=== PATIENT | female | born 1960 | race African-American/Black ===

== ENCOUNTER 2024-04-27 12:21 | Inpatient (IN) | payer MEDICAID, OTHER ==
[~2024-04-27] VITALS: Ht 172.7 cm; Wt 80.7 kg
[2024-04-27] MEDS: SODIUM CHLORIDE 0.9% 1,000 ML IV ONE (13:06)
[2024-04-27] MEDS: ONDANSETRON HCL 4MG/2ML INJ IV STA (13:10)
[2024-04-27] MEDS: MORPHINE SULFATE 4 MG/ML INJ (FOR IV/IM USE) IV STA (14:01)
[2024-04-27 15:12] LABS: BASOPHILS % 0.4 % (0.0-2.0); DIFFERENTIAL COMMENT 0; EOSINOPHILS % 0.7 % (0.0-5.0); HEMATOCRIT. 36.5 % (36.0-48.0); HEMOGLOBIN. 11.2 g/dL (12.0-16.0); LYMPHOCYTES % 14.8 % (20.0-50.0); MEAN CORPUSCULAR HEMOGLOBIN 22.9 pg (28.0-32.0); MEAN CORPUSCULAR HGB CONC 30.7 g/dL (31.0-37.0); MEAN CORPUSCULAR VOLUME 74.4 fL (81.0-99.0); MEAN PLATELET VOLUME 8.2 fl (7.4-10.4); MONOCYTES % 6.5 % (2.0-8.0); NEUTROPHILS % 77.6 % (40.0-76.0); PLATELET 402 x1000/uL (130-400); RED BLOOD CELL COUNT 4.91 mill/uL (4.2-5.4); RED CELL DISTRIBUTION WIDTH 16.2 % (11.6-14.6); WHITE BLOOD COUNT 13.3 x1000/uL (4.5-11.0)
[2024-04-27 15:16] LABS: CHLORIDE 105 mEq/L (98-107); POTASSIUM 4.7 mEq/L (3.5-5.1); SODIUM 136 mEq/L (136-145)
[2024-04-27 15:17] LABS: CALCIUM 8.6 mg/dL (8.7-10.4); CARBON DIOXIDE 16 mEq/L (21-32)
[2024-04-27 15:21] LABS: INR 1.2; PROTHROMBIN TIME 13.7 sec (9.6-11.0)
[2024-04-27 15:22] LABS: CREATININE 1.1 mg/dL (0.6-1.0); GLUCOSE 88 mg/dL (70-105); UREA NITROGEN BLOOD 22 mg/dL (9-23)
[2024-04-27 15:24] LABS: LACTIC ACID 2.2 mmol/L (0.4-2.0)
[2024-04-27 19:30] LABS: CLARITY URINE CLEAR (CLEAR); COLOR URINE YELLOW (YELLOW); GLUCOSE URINE 1+ (NEGATIVE); KETONES URINE 1+ (NEGATIVE); LEUKOCYTE ESTERASE URINE TRACE (NEGATIVE); NITRITE URINE NEGATIVE (NEGATIVE); OCCULT BLOOD URINE NEGATIVE (NEGATIVE); PROTEIN URINE 1+ (NEGATIVE); SPECIFIC GRAVITY URINE 1.028 (1.005-1.030)
[2024-04-27 19:51] LABS: COARSE GRANULAR CASTS URINE 0-5 /lpf
[2024-04-27 19:52] LABS: RBC URINE NONE SEEN /hpf (0-2); WBC URINE 0-2 /hpf (0-2)
[2024-04-27 19:53] LABS: BACTERIA URINE TRACE; SQUAMOUS EPITHELIAL CELL URINE 1+ /lpf (RARE/1+)
[2024-04-27] MEDS ORDERED: GUAIFENESIN 200MG/10ML SUGAR FREE UDC PO PRN (20:45)
[2024-04-27] MEDS ORDERED: ACETAMINOPHEN 650MG/20.3ML UDC GT PRN (20:45)
[2024-04-27] MEDS ORDERED: DOCUSATE SODIUM 100MG CAPSULE PO PRN (20:45)
[2024-04-27] MEDS ORDERED: IPRATROPIUM/ALBUTEROL 0.5-3(2.5)MG/3ML NEB HHN PRN (20:45)
[2024-04-27] MEDS ORDERED: CLONIDINE 0.1MG TABLET PO PRN (20:45)
[2024-04-27] MEDS ORDERED: ACETAMINOPHEN 325MG TABLET PO PRN (20:45)
[2024-04-27] MEDS ORDERED: PIPERACILLIN/TAZO 3.375G/50ML 50 ML IV SCH (21:00)
[2024-04-27] MEDS: VANCOMYCIN 1,750 MG in SODIUM CHLORIDE 0.9% 500 ML IV NR (21:50)
[2024-04-27] MEDS ORDERED: IOHEXOL-300 100 ML BOTTLE ONE (21:50)
[2024-04-28] VITALS: BP 114/51; PULSE 85; RESP 16; TEMP 36.55848; O2SAT 99
[2024-04-28 00:25] LABS: IRON 30 ug/dL (50-170)
[2024-04-28 00:28] LABS: TOTAL IRON BINDING CAPACITY 419 ug/dl (250-425)
[2024-04-28 00:45] LABS: FOLIC ACID (FOLATE) SERUM 11.48 ng/mL (>5.38)
[2024-04-28 00:46] LABS: VITAMIN B12 SERUM 1072 pg/mL (211-911)
[2024-04-28 02:37] VITALS: BP 126/68; PULSE 65; RESP 18; TEMP 36.83628; O2SAT 100
[2024-04-28] MEDS: ONDANSETRON HCL 4MG/2ML INJ IV PRN (03:10)
[2024-04-28] MEDS: DEXT 5%/0.45% NACL 1000ML 1,000 ML IV SCH (03:11)
[2024-04-28] MEDS: PIPERACILLIN/TAZO 3.375G/50ML 50 ML IV SCH (03:11)
[2024-04-28 03:44] VITALS: BP 135/78; PULSE 89; RESP 18; TEMP 36.6404
[2024-04-28] MEDS ORDERED: AMLO5TAB5 MT (05:55)
[2024-04-28] MEDS ORDERED: EMPA10TA MT (05:55)
[2024-04-28 06:59] LABS: BASOPHILS % 0.8 % (0.0-2.0); DIFFERENTIAL COMMENT 0; EOSINOPHILS % 1.3 % (0.0-5.0); HEMATOCRIT. 35.5 % (36.0-48.0); LYMPHOCYTES % 15.1 % (20.0-50.0); MEAN CORPUSCULAR HEMOGLOBIN 23.1 pg (28.0-32.0); MEAN CORPUSCULAR HGB CONC 30.9 g/dL (31.0-37.0); MEAN CORPUSCULAR VOLUME 74.8 fL (81.0-99.0); MEAN PLATELET VOLUME 8.3 fl (7.4-10.4); MONOCYTES % 9.4 % (2.0-8.0); NEUTROPHILS % 73.4 % (40.0-76.0); PLATELET 325 x1000/uL (130-400); RED BLOOD CELL COUNT 4.74 mill/uL (4.2-5.4); WHITE BLOOD COUNT 9.5 x1000/uL (4.5-11.0)
[2024-04-28 07:13] LABS: CARBON DIOXIDE 21 mEq/L (21-32); CHLORIDE 105 mEq/L (98-107); POTASSIUM 4.5 mEq/L (3.5-5.1); SODIUM 134 mEq/L (136-145)
[2024-04-28 07:14] LABS: CALCIUM 8.7 mg/dL (8.7-10.4)
[2024-04-28 07:19] LABS: CREATININE 1.2 mg/dL (0.6-1.0); GLUCOSE 159 mg/dL (70-105); TRIGLYCERIDE 104 mg/dL (0-150); UREA NITROGEN BLOOD 19 mg/dL (9-23)
[2024-04-28 07:20] LABS: CHOLESTEROL 72 mg/dL (<200); LDL CHOLESTEROL 35 mg/dL (5-100)
[2024-04-28 07:21] LABS: HDL CHOLESTEROL < 20 mg/dL (>65)
[2024-04-28 08:00] VITALS: BP 108/69; PULSE 94; RESP 20; TEMP 36.16956; O2SAT 100
[2024-04-28] MEDS: ENOXAPARIN 40MG/0.4ML SYR SUBCUT SCH (09:47)
[2024-04-28 09:50] LABS: *AMPHETAMINES SCREEN URINE NEGATIVE (NEGATIVE); *BARBITURATES SCREEN URINE NEGATIVE (NEGATIVE); *BENZODIAZEPINES SCREEN URINE NEGATIVE (NEGATIVE); *COCAINE SCREEN URINE NEGATIVE (NEGATIVE); METHADONE URINE SCREEN NEGATIVE (NEGATIVE)
[2024-04-28 09:51] LABS: CANNABINOID URINE SCREEN NEGATIVE (NEGATIVE); ECSTASY MDMA SCREEN URINE NEGATIVE (NEGATIVE); OPIATES URINE SCREEN PRESUMPTIVE POSITIVE (NEGATIVE); PHENCYCLIDINE URINE SCREEN NEGATIVE (NEGATIVE)
[2024-04-28 12:00] VITALS: BP 121/77; PULSE 92; RESP 20; TEMP 36.33624; O2SAT 100
[2024-04-28] MEDS ORDERED: MORPHINE SULFATE 2 MG/ML INJ (NOT FOR IM USE) IV PRN (15:45)
[2024-04-28] MEDS ORDERED: NALOXONE HCL 0.4MG/ML VIAL IV PRN (15:45)
[2024-04-28 16:00] VITALS: BP 108/69; PULSE 75; RESP 20; TEMP 36.16956; O2SAT 100
[2024-04-28] MEDS: OXYCODONE HCL 5MG TABLET PO PRN (16:56)
[2024-04-28 18:21] LABS: ALANINE AMINOTRANSFERASE 30 IU/L (10-49); ALBUMIN 3.5 g/dL (3.2-4.8); ASPARTATE AMINOTRANSFERASE 91 IU/L (<34); BILIRUBIN DIRECT 0.5 mg/dL (<=3.0); BILIRUBIN TOTAL 0.9 mg/dL (0.1-1.0); PROTEIN TOTAL 6.4 g/dL (6.0-8.3)
[2024-04-28] MEDS: FAMOTIDINE 20MG TABLET PO SCH (20:57)
[2024-04-28] MEDS: VANCOMYCIN 1.25GM PMX (XELLIA) 250 ML IV SCH (20:58)
[2024-04-28] MEDS: DOCUSATE SODIUM 250MG CAPSULE PO SCH (20:59)
[2024-04-29 08:00] VITALS: BP 100/68; PULSE 72; RESP 18; TEMP 35.78064; TEMP 36.114; O2SAT 98
[2024-04-29 08:35] LABS: POTASSIUM 4.4 mEq/L (3.5-5.1)
[2024-04-29 08:36] LABS: CALCIUM 8.6 mg/dL (8.7-10.4)
[2024-04-29 08:41] LABS: CREATININE 1.3 mg/dL (0.6-1.0)
[2024-04-29 09:38] LABS: HEMATOCRIT 36.6 % (36.0-48.0); HEMOGLOBIN 11.1 g/dL (12.0-16.0); MEAN CORPUSCULAR HEMOGLOBIN 23.2 pg (28.0-32.0); MEAN CORPUSCULAR HGB CONC 30.3 g/dL (31.0-37.0); MEAN CORPUSCULAR VOLUME 76.7 fL (81.0-99.0); PLATELET 314 x1000/uL (130-400); RED BLOOD CELL COUNT 4.78 mill/uL (4.2-5.4); RED CELL DISTRIBUTION WIDTH 16.3 % (11.6-14.6); WHITE BLOOD COUNT 10.7 x1000/uL (4.5-11.0)
[2024-04-29 10:21] VITALS: BP 100/68; PULSE 72; RESP 18; TEMP 35.78064; O2SAT 98
[2024-04-29 12:00] VITALS: BP 123/78; PULSE 91; RESP 20; TEMP 36.00288; O2SAT 100
[2024-04-29] MEDS: PROCHLORPERAZINE 10MG/2ML VIAL IV PRN (15:20)
[2024-04-29 16:00] VITALS: BP 131/67; PULSE 91; RESP 20; TEMP 36.28068; O2SAT 97
[2024-04-29 20:00] VITALS: BP 113/78; PULSE 97; RESP 18; TEMP 36.61404; O2SAT 100
[2024-04-29] MEDS ORDERED: ONDANSETRON HCL 4MG/2ML INJ IV PRN (23:45)
[2024-04-30] VITALS (7 sets, daily range): BP systolic 111–126; BP diastolic 68–79; PULSE 81–108; RESP 17–19; TEMP 36.22512–36.9474; O2SAT 97–100
[2024-04-30 08:33] LABS: HEMATOCRIT 38.6 % (36.0-48.0); HEMOGLOBIN 11.8 g/dL (12.0-16.0); MEAN CORPUSCULAR HEMOGLOBIN 23.3 pg (28.0-32.0); MEAN CORPUSCULAR HGB CONC 30.7 g/dL (31.0-37.0); MEAN CORPUSCULAR VOLUME 76.1 fL (81.0-99.0); PLATELET 342 x1000/uL (130-400); RED BLOOD CELL COUNT 5.07 mill/uL (4.2-5.4); RED CELL DISTRIBUTION WIDTH 16.4 % (11.6-14.6); WHITE BLOOD COUNT 10.3 x1000/uL (4.5-11.0)
[2024-04-30 08:51] LABS: CALCIUM 9.2 mg/dL (8.7-10.4); POTASSIUM 4.4 mEq/L (3.5-5.1)
[2024-04-30 08:56] LABS: CREATININE 1.6 mg/dL (0.6-1.0)
[2024-04-30] MEDS ORDERED: SODIUM CHLORIDE 0.9% 1,000 ML IV SCH (15:15)
[2024-05-01] VITALS (7 sets, daily range): BP systolic 112–132; BP diastolic 60–79; PULSE 78–113; RESP 17–19; TEMP 36.3918–36.9474; O2SAT 97–100
[2024-05-01 07:31] LABS: HEMATOCRIT 39.5 % (36.0-48.0); HEMOGLOBIN 11.9 g/dL (12.0-16.0); MEAN CORPUSCULAR HEMOGLOBIN 23.4 pg (28.0-32.0); MEAN CORPUSCULAR HGB CONC 30.1 g/dL (31.0-37.0); MEAN CORPUSCULAR VOLUME 77.9 fL (81.0-99.0); PLATELET 318 x1000/uL (130-400); RED BLOOD CELL COUNT 5.07 mill/uL (4.2-5.4); RED CELL DISTRIBUTION WIDTH 16.6 % (11.6-14.6); WHITE BLOOD COUNT 11.6 x1000/uL (4.5-11.0)
[2024-05-01 07:36] LABS: CALCIUM 8.7 mg/dL (8.7-10.4); CARBON DIOXIDE 17 mEq/L (21-32); CHLORIDE 106 mEq/L (98-107); POTASSIUM 4.9 mEq/L (3.5-5.1); SODIUM 136 mEq/L (136-145)
[2024-05-01 07:41] LABS: CREATININE 1.5 mg/dL (0.6-1.0); GLUCOSE 100 mg/dL (70-105)
[2024-05-01 07:42] LABS: UREA NITROGEN BLOOD 21 mg/dL (9-23)
[2024-05-01 07:44] LABS: PHOSPHORUS 4.2 mg/dL (2.5-4.9)
[2024-05-01] MEDS ORDERED: PROC10TA65 PO (12:00)
== END 2024-05-01 20:41 | disposition home health service (06) | DRG 720 ==
LOC: ER 12:21 → EDBEDREQ 13:01 → EDBEDREQSVC 20:25 → EDBEDREQTM 20:25 → 5WST 21:09 → 7EST 04-28 02:56
PROVIDERS: ADMIT Preventive Medicine Clinical Informatics; ATTEND Preventive Medicine Clinical Informatics
DX: A41.9 Sepsis, unspecified organism (principal); N17.0 Acute kidney failure with tubular necrosis; C16.9 Malignant neoplasm of stomach, unspecified; C78.7 Secondary malignant neoplasm of liver and intrahepatic bile duct; E87.1 Hypo-osmolality and hyponatremia; C78.00 Secondary malignant neoplasm of unspecified lung; R62.7 Adult failure to thrive; E11.22 Type 2 diabetes mellitus with diabetic chronic kidney disease; D50.9 Iron deficiency anemia, unspecified; E86.0 Dehydration; N39.0 Urinary tract infection, site not specified; R65.20 Severe sepsis without septic shock; N18.9 Chronic kidney disease, unspecified; I12.9 Hypertensive chronic kidney disease with stage 1 through stage 4 chronic kidney disease, or unspecified chronic kidney disease; E86.9 Volume depletion, unspecified; Z68.27 Body mass index [BMI] 27.0-27.9, adult; Z85.05 Personal history of malignant neoplasm of liver; Z85.028 Personal history of other malignant neoplasm of stomach; Z79.01 Long term (current) use of anticoagulants
CPT/HCPCS: 36415; 71260; 74177; 76705; 80048; 80061; 80076; 80202; 80305; 81003; 82378; 82607; 82746; 83540; 83550; 83605; 83735; 84100; 85025; 85027; 93005; 97162; 97166; 97530; 99291; J0780; J1650; J2270; J2405; J2543; J3370; J7030; J7040; Q9967